=== PATIENT | female | born 2000 | race Caucasian/White ===

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

== ENCOUNTER 2022-03-21 03:15 | Emergency (ER) | payer BC | END 2022-03-21 05:00 | disposition home or self-care (01) | LOC: ERS 03:15 | DX: T76.21XA Adult sexual abuse, suspected, initial encounter (principal); R10.30 Lower abdominal pain, unspecified | CPT/HCPCS: 99285 ==